=== PATIENT | female | born 1950 | race Caucasian/White ===

== ENCOUNTER → 2017-05-20 | Outpatient (CLI) | payer MEDICARE, OTHER ==
[~2017-05-20] MED LIST: CLOP75TA PO; DILA2TAB4 PO; DOCU1CAP39 PO; DULA0.5I SQ; GLIP10TA6 PO; HYDR-3583 PO; IRBE150T15 PO; LEXA20TA PO; LYRI75CA PO; MOBI15TA PO; MORP1TAB25 PO; NOVORP2 SQ; PANT40TA3 PO; PENT400T PO; ZOCO40TA PO; ZOLP10TA3 PO
[2017-05-20 10:39] LABS: HEMATOCRIT 33.7 % (35.0-46.0); MEAN CELL VOLUME 87.9 FL (80.0-100.0); MEAN CORPUSCULAR HEMOGLOBIN 29.3 PG (27.0-34.0); MEAN CORPUSCULAR HGB CONC 33.3 % (32.0-36.0); PLATELET COUNT 295 TH/MM3 (150-450); RED BLOOD COUNT 3.83 MIL/MM3 (4.00-5.30); RED CELL DISTRIBUTION WIDTH 14.4 % (11.6-17.2); REVIEW FLAG FINAL; WHITE BLOOD COUNT 8.8 TH/MM3 (4.0-11.0)
[2017-05-20 10:44] LABS: APTT (PATIENT) 22.9 SEC (24.3-30.1); INTERNATIONAL NORMALIZED RATIO 0.9 RATIO; PROTHROMBIN TIME - PATIENT 9.9 SEC (9.8-11.6)
[2017-05-20 11:00] LABS: BICARBONATE 25.1 MEQ/L (21.0-32.0); POTASSIUM 4.1 MEQ/L (3.5-5.1)
--- NOTE | 2017-05-20 11:08 | RADRPT ---
EXAM DATE/TIME: 05/20/2017 10:45 [facility] COMPARISON: No previous studies available for comparison. INDICATIONS : Evaluate for penumonia, penumothorax or communicable disease. Lumbar spine surgery. MEDICAL HISTORY : Hypertension. Osteoarthritis. Diabetic. Peripheral neuropathy. CAD. Peripheral vascular disease. SURGICAL HISTORY : Cholecystectomy. Cardiac cath w/ stent. ENCOUNTER: Initial ACUITY: 1 day PAIN SCORE: 0/10 LOCATION: chest FINDINGS: PA and lateral views of the chest demonstrate the lungs to be symmetrically aerated without evidence of mass, infiltrate or effusion. The cardiomediastinal contours are unremarkable. Osseous structure s are intact. CONCLUSION: No acute disease. Dave Jalloh Jr., MD on May 20, 2017 at 11:04 Board Certified Radiologist. This report was verified electronically.
--- NOTE | 2017-05-22 08:43 | EKG ---
Date Performed: 05/20/2017 Time Performed: 10:05:58 PTAGE: 66 years EKG: Sinus rhythm WITH OCCASIONAL SUPRAVENTRICULAR PREMATURE COMPLEXES LOW QRS VOLTAGE IN PRECORDIAL LEADS BORDERLINE ECG NO PREVIOUS TRACING DOCTOR: Ramón Burks Interpretating Date/Time 05/22/2017 08:42:59
== END ==
LOC: CPRE 09:13
PROVIDERS: ATTEND Neurological Surgery
DX: Z01.810 Encounter for preprocedural cardiovascular examination (principal); Z01.811 Encounter for preprocedural respiratory examination; Z01.812 Encounter for preprocedural laboratory examination; M48.062 Spinal stenosis, lumbar region with neurogenic claudication; M54.16 Radiculopathy, lumbar region; M43.16 Spondylolisthesis, lumbar region; R94.31 Abnormal electrocardiogram [ECG] [EKG]
CPT/HCPCS: 36415; 71020; 80048; 85027; 85610; 85730; 93005

== ENCOUNTER 2017-05-25 05:49 | Inpatient (IN) | payer MEDICARE, OTHER ==
[~2017-05-25] VITALS: Ht 172.7 cm; Wt 100.0 kg
[~2017-05-25 05:49] MED LIST changes: -DILA2TAB4 PO; -DOCU1CAP39 PO; -NOVORP2 SQ; -PANT40TA3 PO
[2017-05-25] MEDS ORDERED: LACTATED RINGER'S 1000 ML IV PRN (06:45)
[2017-05-25] MEDS ORDERED: SODIUM CHLORID 0.9% 500 ML IV PRN (06:45)
[2017-05-25] MEDS ORDERED: POVIDONE IODINE 5% (ANTISEPSIS KIT) 4 APPLICATIONS EACH NARE PRN (06:45)
[2017-05-25] MEDS ORDERED: METOPROLOL TARTRATE 25 MG TAB PO PRN (06:45)
[2017-05-25] MEDS ORDERED: INSULIN HUMAN REGULAR 1,000 UNITS/10 ML VIAL SQ PRN (06:45)
[2017-05-25] MEDS ORDERED: CHLORHEXIDINE GLUCONATE 2 % 1 PACK (2 CLOTHS) TOPICAL PRN (06:45)
[2017-05-25] MEDS ORDERED: LACTATED RINGER'S 1000 ML INJ 1,000 ML IV SCH (06:45)
[2017-05-25] MEDS ORDERED: ACETAMINOPHEN 1000 MG/100 ML 100 ML IV ONE (07:00)
[2017-05-25] MEDS ORDERED: ARTIFICIAL TEARS OPTH OINT 3.5 APPLIC/3.5 GM TUBO ONE (07:00)
[2017-05-25] MEDS ORDERED: THROMBIN (TOPICAL) 5,000 UNIT VIAL ONE ×2 (08:11→11:43)
[2017-05-25] MEDS ORDERED: GELFOAM SIZE 100 ONE (08:12)
[2017-05-25] MEDS ORDERED: GENTAMICIN SULFATE 80 MG/2 ML VIAL ONE (08:12)
[2017-05-25] MEDS ORDERED: LIDOCAINE 1%/EPINEPHrine 1:100,000 SOLN 50 ML VIAL ONE (08:12)
[2017-05-25] MEDS ORDERED: PROPOFOL 500 MG/50 ML INJ 50 ML ONE (09:21)
[2017-05-25] MEDS ORDERED: ceFAZolin INJ 1,000 MG VIAL IV ONE (09:38)
[2017-05-25] MEDS: ceFAZolin 1,000 MG/NS 100 ML IV SCH ×4 (09:38→13:30)
[2017-05-25] MEDS ORDERED: HYDROmorphone HCL PF 2 MG/ML VIAL ONE (10:19)
[2017-05-25] MEDS ORDERED: KETAMINE HCL 500 MG/10 ML VIAL ONE (10:19)
[2017-05-25] MEDS ORDERED: BUPIVACAINE LIPOSOME PF 1.3% 20 ML VIAL ONE (10:20)
[2017-05-25] MEDS ORDERED: PROPOFOL 500 MG/50 ML INJ 100 ML ONE (10:39)
[2017-05-25] MEDS ORDERED: PROPOFOL 200 MG/20 ML AMP ONE (12:36)
[2017-05-25 12:44] LABS: BLOOD GAS BASE EXCESS -6.5 mmol/L (-2-2); BLOOD GAS CARBOXYHEMOGLOBIN 0.9 % (0-4); BLOOD GAS HCO3 18 mmol/L (22-26); BLOOD GAS METHEMOGLOBIN 1.3 % (0-2); BLOOD GAS O2 HGB SATURATION 97 % (90-100); BLOOD GAS OXYGEN CONTENT 19.6 Vol % (12.0-20.0); BLOOD GAS PCO2 33 mmHg (38-42); BLOOD GAS PO2 284 mmHg (61-120); BLOOD GAS TOTAL HGB 13.9 G/DL (12.0-16.0); CRITICAL VALUE NO; TEMP CORR TO 98.6
[2017-05-25 12:45] LABS: FIO2 50 %; OXYGEN DEVICE OR; STAT YES
[2017-05-25] MEDS ORDERED: BUPIVACAINE LIPOSOME PF 1.3% 20 ML VIAL INFIL ONE (13:38)
[2017-05-25] MEDS ORDERED: BUPIVACAINE HCL PF 0.25% 30 ML VIAL ONE (14:12)
[2017-05-25] MEDS ORDERED: MORPHINE SULFATE 4 MG/ML INJ IV PUSH PRN (15:30)
[2017-05-25] MEDS ORDERED: ONDANSETRON HCL 4 MG/2 ML VIAL IV PUSH PRN (15:30)
[2017-05-25] MEDS ORDERED: SODIUM CHLORIDE 0.9% FLUSH 5 ML FLUSH IVF PRN (15:30)
[2017-05-25] MEDS ORDERED: GLUCAGON 1 MG/ML VIAL OTHER PRN (15:30)
[2017-05-25] MEDS ORDERED: DEXTROSE 50% IN WATER 50 ML VIAL(D50) IV PUSH PRN (15:30)
[2017-05-25] MEDS ORDERED: HYDROmorphone HCL 2 MG TAB PO PRN (15:30)
[2017-05-25] MEDS ORDERED: NALOXONE HCL 0.4 MG/ML AMP IV PUSH PRN (15:30)
[2017-05-25] MEDS ORDERED: HYDROmorphone HCL PF 1 MG/ML VIAL IV PUSH PRN (15:30)
[2017-05-25] MEDS ORDERED: ZOLPIDEM TARTRATE 10 MG TAB PO PRN (15:45)
[2017-05-25] MEDS ORDERED: NON-FORMULARY DRUG (Dulaglutide Inj (Trulicity Inj) 1.5 MG) SQ SCH (15:45)
--- NOTE | 2017-05-25 15:48 | PD.OP ---
Operative Report Date of Surgery: May 25, 2017 Preoperative Diagnosis: (1) Lumbar radiculopathy (2) Lumbar canal stenosis (3) Spondylolisthesis of lumbar region Grade I L4-5- spondylolisthesis Lumbar stenosis Left L5 radiculopathy Postoperative Diagnosis: (1) Lumbar radiculopathy (2) Lumbar canal stenosis (3) Spondylolisthesis of lumbar region Grade I L4-5- spondylolisthesis Lumbar stenosis Left L5 radiculopathy Procedure: 1. Bilateral L4-5 decompressive hemilaminectomy 2. Left L4 5 facetectomy foraminotomy, decompression left L4 and L5 nerve roots 3. L4 5 discectomy, interbody fusion, PEEK cage, local autograft bone, allograft bone 4. Bilateral L4-5 posterior instrumentation with pedicle screw fixation Anesthesia: Gen. Surgeon: Eliot Marquez [employer] Director(s): Goran Becerril Operation and Findings: Procedure in detail The patient was brought to the operating room and general endotracheal anesthesia induced without difficulty Lines were established per Anesthesia Sequential compression devices were in place The patient was positioned prone on the concentric Emerson table with the side bolsters and all extremities appropriately padded Leads for intraoperative neuro monitoring were placed prior to positioning and a baseline study obtained Appropriate timeout procedure was performed with all personnel present and in agreement The lumbar region was shaved with clippers and sterilely prepped and draped 1% Xylocaine with epinephrine was used for local infiltration over the incision site which was made approximately 5.5 cm lateral to the midline at the bilateral L4-5 level and carried sharply down to the fascia. The fascia was sharply incised and finger dissection was used to separate the normal intermuscular plane at the L4-5 level, allowing direct palpation of the junction of the and pedicle and transverse process on each side. The entry point for the pedicle screws were determined by anatomic and radiographic landmarks. Using AP and lateral C-arm imaging, the Jamshidi needle was guided through the bilateral L4 and L5 pedicle. The intraoperative C-arm imaging was used to verify appropriate Jamshidi needle placement. The wires were then placed through the Jamshidi needle cannulas, and the cannula was withdrawn. The wires were temporarily clipped away from the operative field. On the left side Stoll elevator was used for subperiosteal elevation of paraspinous musculature and fascia away from the lamina and spinous processes The deep self-retaining retractor was placed The appropriate levels were verified with intraoperative C-arm The microscope was moved into place and used for the remainder of the procedure including the closure The TPS drill with a 5 mm bone bur followed by the Kerrison rongeur was used to remove the inferior two thirds of the lamina at the cephalad level of the decompression and the superior third of the lamina at the caudal level of the decompression. This was performed starting on the left side, and then working across midline towards the right. On the left side the majority of the medial facet was removed to allow sufficient room for placement of the cage without significant retraction of the thecal sac and exiting nerve root. Additional bone from the superior aspect of the superior left L5 facet was removed with Kerrison rongeur to complete the foraminotomy and wide decompression of the exiting left L4 nerve root. The left L4 5 facet surfaces were significantly at the time of initial exposure. Hypertrophied ligamentum flavum was elevated away from the thecal sac and exiting nerve roots with the thin ligament dissector and resected with a 15 blade knife and Kerrison rongeur. The thecal sac and exiting left L5 nerve root were freed up from surrounding adhesions with the microdissectors and gently retracted medially revealing the underlying disc and annulus. There was moderate subannular disc herniation. The annulus was incised with the 11 blade knife and discectomy performed with pituitary biopsy forceps and straight and angled curettes The endplate scrapers were used to decorticate the endplates and any remaining debris was removed with the antibiotic irrigation and suction and pituitary biopsy forceps The appropriate size PEEK cage was packed with retained lamina cancellus autograft and a small amount of demineralized bone matrix The 8 mm Lordotic cage was used. The cage was placed at the L4 5 level with a good fit of the cage. The cage was positioned more towards the right side in order to reduce the convex left L4 5 coronal curvature The placement was checked under the microscope and with intraoperative C-arm and felt to be satisfactory. The thecal sac and nerve roots were probed with the long blunt nerve hook and felt to be well decompressed The cannulated 5.5 mm tap was then used to prepare the pedicle screw sites on each side, with the dilators used to protect the surrounding tissue. The appropriate length Spine Wave Sniper percutaneous cannulated pedicle screw attached to the MIS extenders were placed into the bilateral L4 and L5 pedicle using the existing guidewires which were then removed. Pedicle screw placement was checked with intraoperative C-arm imaging and felt to be satisfactory. The percutaneous rods were placed across the pedicle screws on each side. The locking caps were secured with the torque wrench and anti-torque device Compression and alignment were achieved as necessary with the rods and reducers. The entire construct was checked with intraoperative C-arm and felt to be satisfactory The region was well irrigated with antibiotic irrigation The posterior lateral structures at the bilateral L4 5 levels were decorticated with the TPS drill The shavings were left in place, to which was added the remaining autograft and allograft bone which was firmly packed in place for the posterior lateral fusion. The 10 [place] fluted drain was left in place at the operative side and brought out through a incision at the upper lumbar region and secured to the skin with nylon suture and attached to sterile suction bleeding was carefully controlled with the bipolar forceps The closure was performed with 0 Vicryl interrupted for the deep and superficial fascia, with 3-0 Vicryl for the subcutaneous closure and 4-0 Vicryl running subcuticular closure. Dressings sterile Mastisol, Steri-Strips and Primapore was placed The patient was turned into supine position and taken to recovery room in stable condition All counts were correct at the end of the case Estimated blood loss was 450 cc No specimen was sent to pathology Neuro monitoring was stable during the procedure Eliot Marquez MD May 25, 2017 15:48
[2017-05-25] MEDS ORDERED: *MEPERIDINE 25 MG INJ VIAL PERIprocedural Use ONLY ONE (15:57)
[2017-05-25] MEDS ORDERED: DO NOT ADM ANY ANTICOAGULANT DRUGS PRN (16:00)
[2017-05-25] MEDS: glipiZIDE 10 MG TAB PO SCH (16:00)
[2017-05-25 16:14] LABS: AUTOMATED NEUTROPHIL # 7.3 TH/MM3 (1.8-7.7); BASOPHIL % 0.3 % (0.0-2.0); EOSINOPHIL % 0.3 % (0.0-4.0); HEMATOCRIT 27.5 % (35.0-46.0); HEMO FLAGS DIFF FINAL; LYMPH % 19.8 % (9.0-44.0); MEAN CELL VOLUME 88.2 FL (80.0-100.0); MEAN CORPUSCULAR HEMOGLOBIN 29.2 PG (27.0-34.0); MEAN CORPUSCULAR HGB CONC 33.1 % (32.0-36.0); MONO % 7.3 % (0.0-8.0); NEUT % 72.3 % (16.0-70.0); PLATELET COUNT 252 TH/MM3 (150-450); RED BLOOD COUNT 3.11 MIL/MM3 (4.00-5.30); RED CELL DISTRIBUTION WIDTH 14.2 % (11.6-17.2); WHITE BLOOD COUNT 10.1 TH/MM3 (4.0-11.0)
[2017-05-25] MEDS ORDERED: *morphine SULFATE 8 MG/ML PERIprocedure ONLY ONE (16:19)
--- NOTE | 2017-05-25 16:19 | RADRPT ---
EXAM DATE/TIME: 05/25/2017 10:03 [facility] COMPARISON: No previous studies available for comparison. INDICATIONS : Lower back pain. L4-L5 Fusion. MEDICAL HISTORY : Hypertension. Osteoarthritis. Diabetic. Peripheral neuropathy. CAD. Peripheral vascular disease. SURGICAL HISTORY : Cholecystectomy. Cardiac cath w/ stent. ENCOUNTER: Initial ACUITY: 1 day PAIN SCORE: Non-responsive. LOCATION: Bilateral lower back. FINDINGS: 2 magnified C-arm spot views are centered over the lower lumbar spine. They show bilateral transpedic ular posterior fixation with intervening bone graft device at L4-L5. Alignment seen. CONCLUSION: Limited images as detailed above. Dave Jalloh Jr., MD on May 25, 2017 at 16:15 Board Certified Radiologist. This report was verified electronically.
[2017-05-25 16:30] LABS: BICARBONATE 22.4 MEQ/L (21.0-32.0); POTASSIUM 4.2 MEQ/L (3.5-5.1)
[2017-05-25] MEDS: 1/2 NS + KCL 20 MEQ INJ 1,000 ML IV SCH (16:40)
[2017-05-25] MEDS: INSULIN NovoLIN REGULAR SUPPLEMENTAL SCALE SQ SCH ×2 (17:00→21:07)
[2017-05-25] MEDS ORDERED: PT TRULICITY SQ SCH (17:00)
--- NOTE | 2017-05-25 17:06 | RADRPT ---
EXAM DATE/TIME: 05/25/2017 13:38 [facility] COMPARISON: No previous studies available for comparison. INDICATIONS : Central line placement. MEDICAL HISTORY : Hypertension. Osteoarthritis. Diabetic. Peripheral neuropathy. CAD. Peripheral vascular disease. SURGICAL HISTORY : Cholecystectomy. Cardiac cath w/ stent. ENCOUNTER: Subsequent ACUITY: 4 - 6 days PAIN SCORE: Non-responsive. LOCATION: Bilateral chest FINDINGS: Right IJ line in good position. Cardiomegaly with mild interstitial edema. Negative for pneumothora x. CONCLUSION: Cardiomegaly with mild interstitial edema Line in good position. Riki Marr MD FACR on May 25, 2017 at 17:04 Board Certified Radiologist. This report was verified electronically.
[2017-05-25 17:40] VITALS: BP 128/67; PULSE 92; RESP 18; TEMP 96.3; O2SAT 100
[2017-05-25 19:00] VITALS: BP 139/69; PULSE 93; RESP 16; TEMP 97.7; O2SAT 96
[2017-05-25] MEDS: SODIUM CHLORIDE 0.9% FLUSH 5 ML FLUSH IVF SCH (20:58)
[2017-05-25] MEDS: MORPHINE SULFATE 30 MG CONTROLLED RELEASE TAB PO SCH (20:58)
[2017-05-25] MEDS: DOCUSATE SODIUM 100 MG CAP PO SCH (20:58)
[2017-05-25] MEDS: PREGABALIN 75 MG CAP PO SCH (20:58)
[2017-05-25 21:09] VITALS: O2SAT 99
[2017-05-25] MEDS: PENTOXIFYLLINE 400 MG CONTROLLED RELEASE TAB PO SCH (21:41)
[2017-05-26] MEDS: 1/2 NS + KCL 20 MEQ INJ 1,000 ML IV SCH ×2 (02:08→12:00)
[2017-05-26 04:00] VITALS: BP 99/48; PULSE 86; RESP 17; TEMP 96.8; O2SAT 100
[2017-05-26] MEDS: ACETAMINOPHEN/HYDROcodone 325 MG/10 MG TAB PO PRN ×4 (06:28→21:12)
[2017-05-26] MEDS: glipiZIDE 10 MG TAB PO SCH ×2 (06:28→15:17)
[2017-05-26 07:38] LABS: AUTOMATED NEUTROPHIL # 6.7 TH/MM3 (1.8-7.7); BASOPHIL % 0.5 % (0.0-2.0); EOSINOPHIL % 0.1 % (0.0-4.0); HEMO FLAGS DIFF FINAL; LYMPH % 13.6 % (9.0-44.0); LYMPHOCYTE # 1.2 TH/MM3 (1.0-4.8); MEAN CELL VOLUME 88.1 FL (80.0-100.0); MEAN CORPUSCULAR HEMOGLOBIN 29.2 PG (27.0-34.0); MEAN CORPUSCULAR HGB CONC 33.2 % (32.0-36.0); MONO % 9.9 % (0.0-8.0); NEUT % 75.9 % (16.0-70.0); PLATELET COUNT 205 TH/MM3 (150-450); RED BLOOD COUNT 2.95 MIL/MM3 (4.00-5.30); RED CELL DISTRIBUTION WIDTH 14.2 % (11.6-17.2); WHITE BLOOD COUNT 8.8 TH/MM3 (4.0-11.0)
[2017-05-26 07:59] LABS: BICARBONATE 21.7 MEQ/L (21.0-32.0); POTASSIUM 4.5 MEQ/L (3.5-5.1)
[2017-05-26 08:00] VITALS: BP 111/69; PULSE 86; RESP 18; TEMP 97.4; O2SAT 99
[2017-05-26] MEDS: MORPHINE SULFATE 30 MG CONTROLLED RELEASE TAB PO SCH ×2 (08:57→21:13)
[2017-05-26] MEDS: DOCUSATE SODIUM 100 MG CAP PO SCH ×2 (08:57→21:13)
[2017-05-26] MEDS: ESCITALOPRAM OXALATE 20 MG TAB PO SCH (08:57)
[2017-05-26] MEDS: PANTOPRAZOLE SOD 40 MG DELAYED RELEASE TAB PO SCH (08:57)
[2017-05-26] MEDS: INSULIN NovoLIN REGULAR SUPPLEMENTAL SCALE SQ SCH ×4 (08:57→21:12)
[2017-05-26] MEDS: PENTOXIFYLLINE 400 MG CONTROLLED RELEASE TAB PO SCH ×2 (08:59→21:13)
[2017-05-26] MEDS: PREGABALIN 75 MG CAP PO SCH ×2 (08:59→21:12)
[2017-05-26] MEDS: SODIUM CHLORIDE 0.9% FLUSH 5 ML FLUSH IVF SCH ×2 (09:00→21:15)
[2017-05-26] MEDS ORDERED: IRBESARTAN 150 MG PO SCH (09:00)
[2017-05-26] MEDS: LOSARTAN 50 MG TAB PO SCH (09:00)
[2017-05-26 09:18] LABS: INTERNATIONAL NORMALIZED RATIO 0.9 RATIO
[2017-05-26 09:21] LABS: APTT (PATIENT) 20.8 SEC (24.3-30.1)
[2017-05-26 10:22] VITALS: O2SAT 98
[2017-05-26 12:00] VITALS: BP 112/57; PULSE 82; RESP 18; TEMP 97.7; O2SAT 99
--- NOTE | 2017-05-26 18:22 | HHI.NSPN ---
(Peter Benito) History Chief Complaint: Back and leg pain (Peter Benito) Interval History 05/25: The patient presented to [facility] to undergo a bilateral L4-5 laminectomy, interbody fusion, PEEK cage and posterior instrumentation. Post- operatively she was admitted to a regular med/surg floor. 05/26: When seen this afternoon the patient complains that she is in severe pain and that the hydrocodone and morphine are not helping with her pain at all. She has pain to the lower back going down both legs. She does state she has her neuropathy and is having restless legs. She states her pain is worse than before surgery because she has been cut on. The only thing that helps is hydromorphone, especially intravenous. She does state she pulled out her central venous catheter and the ERIN drain while moving around in bed. She does say that the pills were not controlling her pain before surgery either. (Peter Benito) System Review Comments MUSCULOSKELETAL: Back and leg pain. Restless legs. NEUROLOGICAL: Neuropathy to legs. Restless legs. (Peter Benito) Exam Results 05/25/17 05/25/17 05/26/17 05/26/17 05/27/17 05/27/17 06:00 18:00 06:00 18:00 06:00 18:00 Intake Total 2690 ml 1440 ml 800 ml Output Total 1160 ml 550 ml 710 ml Balance 1530 ml 890 ml 90 ml Intake Oral 480 ml 800 ml IV Total 40 ml 960 ml Other 2650 ml Output Urine Total 700 ml 550 ml 700 ml Drainage Total 10 ml 0 ml 10 ml Estimated Blood Loss 450 ml # Bowel Movements 0 0 Vital Signs Date Time Temp Pulse Resp B/P (MAP) Pulse Ox O2 Delivery O2 Flow Rate FiO2 05/26/17 16:18 18 05/26/17 12:00 97.7 82 18 112/57 (75) 99 05/26/17 10:22 98 Nasal Cannula 3.00 05/26/17 09:57 16 05/26/17 09:57 16 05/26/17 08:00 97.4 86 18 111/69 (83) 99 05/26/17 04:00 96.8 86 17 99/48 (65) 100 05/26/17 00:13 18 05/26/17 00:05 Nasal Cannula 3.00 05/25/17 21:09 99 Nasal Cannula 3.00 05/25/17 19:00 97.7 93 16 139/69 (92) 96 05/25/17 17:40 96.3 92 18 128/67 (87) 100 05/25/17 17:00 97.6 87 14 111/50 (70) 98 Nasal Cannula 3 05/25/17 16:45 86 16 103/53 (70) 99 Nasal Cannula 3 05/25/17 16:30 89 14 108/54 (72) 96 Nasal Cannula 3 05/25/17 16:15 87 16 147/95 (112) 100 Nasal Cannula 3 05/25/17 16:00 88 15 137/74 (95) 98 Nasal Cannula 3 05/25/17 15:45 91 16 148/67 (94) 98 Nasal Cannula 3 05/25/17 15:30 87 14 130/63 (85) 100 Nasal Cannula 3 05/25/17 15:24 97.3 87 15 121/64 (83) 98 Nasal Cannula 5 05/25/17 07:19 98.0 101 20 160/89 (112) 98 (Peter Benito) Physical Examination GENERAL: Awake & alert, appears uncomfortable, continually shifting legs. Affect essentially normal. No apparent distress. SKIN: Warm & dry. Right anterolateral neck CVC insertion site w/dressing essentially off, no drainage from site. Essentially intact dressing to lumbar surgical incision w/o any shadowing. Right lateral ERIN insertion site w/intact dressing, no evident drainage. GENITOURINARY: Acuña catheter to BSD w/clear yellow urine. MUSCULOSKELETAL: Midline thoracolumbar spine NTTP. Lumbar surgical incision NTTP. TTP to bilateral buttocks and lateral hips/thighs. NAVARRO w/o difficulty. Continually shifting lower extremities. NEUROLOGICAL: AAOx3. Speech clear & appropriate. Follows simple commands w/o difficulty. Appears sensation to lower extremities to light touch is normal for patient. She answers that she has neuropathy to the lower extremities but she never endorses that they are numb when asked. Motor strength is 4+ to 5/5 to all major flexion & extension muscle groups to the lower extremities, mild weakness appears to be related to pain in the lateral thigh upon testing. (Peter Benito) Lab, Micro, Other Results Recent Impressions Lumbar Spine X-Ray 05/25/17 0000 Signed Impressions: Service Date/Time: Thursday, May 25, 2017 10:03 - CONCLUSION: Limited images as detailed above. Dave Jalloh Jr., MD Chest X-Ray 05/25/17 0000 Signed Impressions: Service Date/Time: Thursday, May 25, 2017 13:38 - CONCLUSION: Cardiomegaly with mild interstitial edema Line in good position. Riki Marr MD FACR Laboratory Tests Test 05/25/17 12:20 05/25/17 15:28 05/25/17 15:48 05/26/17 07:20 Blood Gas Puncture Site DRAWN IN OR Blood Gas Patient Temperature 98.6 Blood Gas HCO3 18 mmol/L Blood Gas Base Excess -6.5 mmol/L Blood Gas Oxygen Saturation 97 % Arterial Blood pH 7.35 Arterial Blood Partial Pressure CO2 33 mmHg Arterial Blood Partial Pressure O2 284 mmHg Arterial Blood Oxygen Content 19.6 Vol % Arterial Blood Carboxyhemoglobin 0.9 % Arterial Blood Methemoglobin 1.3 % Blood Gas Hemoglobin 13.9 G/DL Oxygen Delivery Device OR Blood Gas Inspired Oxygen 50 % White Blood Count 10.1 TH/MM3 8.8 TH/MM3 Red Blood Count 3.11 MIL/MM3 2.95 MIL/MM3 Hemoglobin 9.1 GM/DL 8.6 GM/DL Hematocrit 27.5 % 26.0 % Mean Corpuscular Volume 88.2 FL 88.1 FL Mean Corpuscular Hemoglobin 29.2 PG 29.2 PG Mean Corpuscular Hemoglobin Concent 33.1 % 33.2 % Red Cell Distribution Width 14.2 % 14.2 % Platelet Count 252 TH/MM3 205 TH/MM3 Mean Platelet Volume 8.2 FL 8.5 FL Neutrophils (%) (Auto) 72.3 % 75.9 % Lymphocytes (%) (Auto) 19.8 % 13.6 % Monocytes (%) (Auto) 7.3 % 9.9 % Eosinophils (%) (Auto) 0.3 % 0.1 % Basophils (%) (Auto) 0.3 % 0.5 % Neutrophils # (Auto) 7.3 TH/MM3 6.7 TH/MM3 Lymphocytes # (Auto) 2.0 TH/MM3 1.2 TH/MM3 Monocytes # (Auto) 0.7 TH/MM3 0.9 TH/MM3 Eosinophils # (Auto) 0.0 TH/MM3 0.0 TH/MM3 Basophils # (Auto) 0.0 TH/MM3 0.0 TH/MM3 CBC Comment DIFF FINAL DIFF FINAL Differential Comment Blood Urea Nitrogen 20 MG/DL 18 MG/DL Creatinine 1.15 MG/DL 1.08 MG/DL Random Glucose 183 MG/DL 219 MG/DL Calcium Level 7.8 MG/DL 8.0 MG/DL Sodium Level 134 MEQ/L 132 MEQ/L Potassium Level 4.2 MEQ/L 4.5 MEQ/L Chloride Level 103 MEQ/L 102 MEQ/L Carbon Dioxide Level 22.4 MEQ/L 21.7 MEQ/L Anion Gap 9 MEQ/L 8 MEQ/L Estimat Glomerular Filtration Rate 48 ML/MIN 51 ML/MIN Test 05/26/17 08:45 Prothrombin Time 10.0 SEC Prothromb Time International Ratio 0.9 RATIO Activated Partial Thromboplast Time 20.8 SEC (Peter Benito) Medical Decision Making Impression and Plan Impression: Postoperative Diagnosis: (1) Lumbar radiculopathy (2) Lumbar canal stenosis (3) Spondylolisthesis of lumbar region Grade I L4-5- spondylolisthesis Lumbar stenosis Left L5 radiculopathy The patient continues to have pain to the buttocks, hips and down the legs that is not controlled with her current medication regimen. Motor strength is good. Sensation appears to be intact for patient. POD #1 () s/p: 1. Bilateral L4-5 decompressive hemilaminectomy 2. Left L4 5 facetectomy foraminotomy, decompression left L4 and L5 nerve roots 3. L4 5 discectomy, interbody fusion, PEEK cage, local autograft bone, allograft bone 4. Bilateral L4-5 posterior instrumentation with pedicle screw fixation Plan: Mobilise patient w/assistance. LSO brace when OOB. PT eval & tx. (Peter Benito) Attending Statement patient seen by CHANDANA post op today . Discussed with RN this evening. Patient is comfortable OOB in chair.. Doesnt seem painful until RN enters the room, when Ms. Dyer exhibits concern over care and companionship at home. Will add Toradol, continue other pain meds. Anticipate she will need rehab or SNF initially post op. (Eliot Marquez MD) Peter Benito May 26, 2017 18:21 Eliot Marquez MD May 26, 2017 21:54
[2017-05-26 20:55] VITALS: BP 137/65; PULSE 88; RESP 18; TEMP 97; O2SAT 95
[2017-05-26 23:55] VITALS: BP 93/44; PULSE 92; RESP 18; TEMP 98.7; O2SAT 100
[2017-05-26] MEDS: KETOROLAC TROMETHAMINE 30 MG/ML (IVP) VIAL IV PUSH SCH (23:59)
[2017-05-27] MEDS: glipiZIDE 10 MG TAB PO SCH (06:04)
[2017-05-27] MEDS: KETOROLAC TROMETHAMINE 30 MG/ML (IVP) VIAL IV PUSH SCH ×2 (06:05→13:18)
[2017-05-27 08:00] VITALS: BP 134/60; PULSE 89; RESP 18; TEMP 96.9; O2SAT 99
[2017-05-27 08:12] LABS: BICARBONATE 23.9 MEQ/L (21.0-32.0)
[2017-05-27 08:13] LABS: POTASSIUM 3.9 MEQ/L (3.5-5.1)
[2017-05-27] MEDS: DOCUSATE SODIUM 100 MG CAP PO SCH (09:03)
[2017-05-27] MEDS: ESCITALOPRAM OXALATE 20 MG TAB PO SCH (09:03)
[2017-05-27] MEDS: PENTOXIFYLLINE 400 MG CONTROLLED RELEASE TAB PO SCH (09:03)
[2017-05-27] MEDS: INSULIN NovoLIN REGULAR SUPPLEMENTAL SCALE SQ SCH ×2 (09:03→13:18)
[2017-05-27] MEDS: PANTOPRAZOLE SOD 40 MG DELAYED RELEASE TAB PO SCH (09:04)
[2017-05-27] MEDS: LOSARTAN 50 MG TAB PO SCH (09:04)
[2017-05-27] MEDS: PREGABALIN 75 MG CAP PO SCH (09:04)
[2017-05-27] MEDS: MORPHINE SULFATE 30 MG CONTROLLED RELEASE TAB PO SCH (09:04)
[2017-05-27] MEDS: SODIUM CHLORIDE 0.9% FLUSH 5 ML FLUSH IVF SCH (09:05)
[2017-05-27] MEDS: ACETAMINOPHEN/HYDROcodone 325 MG/10 MG TAB PO PRN (10:37)
[2017-05-27] MEDS ORDERED: GADODIAMIDE PF 287 MG/ML 20 ML VIAL (for RAD MRI) IV PUSH ONE (13:10)
--- NOTE | 2017-05-27 13:22 | RADRPT ---
EXAM DATE/TIME: 05/27/2017 12:17 [facility] COMPARISON: No previous studies available for comparison. INDICATIONS : Lower back pain radiating down both legs post lumbar fusion. CONTRAST: 20 cc Omniscan (gadodiamide) IV MEDICAL HISTORY : Hypertension. Diabetes mellitus type 2. Osteoarthritis. Peripheral neuropathy. CAD. SURGICAL HISTORY : Fusion, lumbar. Appendectomy. Cholecystectomy. ENCOUNTER: Subsequent ACUITY: 2 day PAIN SCORE: 3/10 LOCATION: lower back TECHNIQUE: Multiplanar multisequence MRI of the lumbar spine was performed with and without contrast. FINDINGS: The most caudal appearing lumbar vertebra is numbered as L5. VERTEBRAE: Bilateral posterior fixation at L4-L5. The orthopedic hardware generates some artifact. Schmorl's nod es are seen involving both endplates at L2 and L3. Marrow signal is normal. Vertebral body heights ar e maintained. CONUS: Normal level and configuration. POST CONTRAST: No abnormal areas of contrast enhancement are seen. Small cortical renal cysts bilaterally. T12-L1: There is disc space narrowing with mild broad-based disc bulge. Lateral recesses and central canal ar e patent. Neural foramina are patent. L1-L2: There is disc space narrowing with mild broad-based disc bulge. Lateral recesses and central canal ar e patent. Neural foramina are patent. L2-L3: There is disc desiccation and disc space narrowing with a mild broad-based disc osteophyte complex mi ld bony hypertrophy and ligamentum flavum hypertrophy of the facets. Mild narrowing of the left later al recess impingement. The right lateral recess is patent. Mild narrowing of the central canal with t he intrathecal space measuring 8 mm in anterior posterior dimension. Neural foramina are patent bilat erally. L3-L4: Part of this level is obscured by artifact from the adjacent hardware. There is disc desiccation and disc space narrowing with a moderate broad-based bulge. Moderate ligamentum flavum hypertrophy and benedict ny hypertrophy of the facets. There is narrowing of the central canal with the intrathecal space linda uring 6 mm in anterior to posterior dimension. Narrowing of the lateral recesses bilaterally but more pronounced on the right. There is narrowing of the left neural foramen with possible impingement of the L3 nerve root. Right neural foramen is patent. L4-L5: Bilateral posterior fixation with left hemilaminectomy changes. Postsurgical changes are seen involvi ng the dorsal soft tissues particular involving the left hemilaminectomy surgical site. No hematoma o r abscess observed. The tissue within the left hemilaminectomy site causes some impression upon the l eft posterior lateral portion of the thecal sac. This causes narrowing of the central canal somewhat. The intrathecal space measures 8 mm in the midline. Neural foramina are obscured. L5-S1: There is disc desiccation and disc space narrowing with a minimal broad-based bulge. Lateral recesses , central canal, and visualized portions of the neural foramina are patent. There is mild artifact fr om the adjacent hardware. Facet joints are unremarkable. CONCLUSION: 1. Posterior fixation at L4-L5 with postsurgical changes seen involving the surgical site including l eft hemilaminectomy changes. There is edema involving the soft tissues which causes some impression u alaina the thecal sac. No hematoma or abscess is seen. 2. Multilevel degenerative changes as detailed at each level in the above discussion. Dave Jalloh Jr., MD on May 27, 2017 at 13:05 Board Certified Radiologist. This report was verified electronically.
[2017-05-27] MEDS ORDERED: MORP1TAB25 PO (14:31)
[2017-05-27] MEDS ORDERED: DILA2TAB4 PO (14:31)
[2017-05-27] MEDS ORDERED: DOCU1CAP39 PO (14:31)
[2017-05-27] MEDS ORDERED: HYDR-3583 PO (14:31)
[2017-05-27] MEDS ORDERED: PANT40TA3 PO (14:31)
[2017-05-27] MEDS ORDERED: NOVORP2 SQ (14:35)
--- NOTE | 2017-05-27 14:51 | HHI.DCPOC ---
Discharge Care Plan Diagnosis: (1) Lumbar radiculopathy (2) Lumbar canal stenosis (3) Spondylolisthesis of lumbar region Your Health Problems Are: Incision/Drains Exercise Tolerance Goals to Promote Your Health * To prevent worsening of your condition and complications * To maintain your health at the optimal level Wear the TLSO brace when out of bed. Wear the cervical collar at all times. No lifting, bending, pushing, pulling or other strenuous activity. Leave the dressing on over the surgical incisions for 1 week. After that you may take the outer dressing off but leave the steri-strips on and let them fall off on their own. No showering until the surgical incision is totally healed. Take the pain medication as prescribed. Avoid taking any medication that contains aspirin or NSAIDs (ibuprofen, naproxen , Motrin, Advil, Naprosyn) for at least a month. Follow up in the office in 2 weeks for a wound check. Directions to Meet Your Goals Take your medications as prescribed Follow your dietary instruction Follow activity as directed Wear the TLSO brace when out of bed. Wear the cervical collar at all times. No lifting, bending, pushing, pulling or other strenuous activity. Leave the dressing on over the surgical incisions for 1 week. After that you may take the outer dressing off but leave the steri-strips on and let them fall off on their own. No showering until the surgical incision is totally healed. Take the pain medication as prescribed. Avoid taking any medication that contains aspirin or NSAIDs (ibuprofen, naproxen , Motrin, Advil, Naprosyn) for at least a month. Follow up in the office in 2 weeks for a wound check. Keep your appointments as scheduled Take your immunizations and boosters as scheduled If your symptoms worsen call your PCP, if no PCP go to Urgent Care Center or Emergency Room Smoking is Dangerous to Your Health. Avoid second hand smoke Call the 24-hour hour crisis hotline for domestic abuse at Peter Benito May 27, 2017 14:51
--- NOTE | 2017-05-27 14:53 | HHI.DS ---
Discharge Summary Admission Date May 25, 2017 at 05:49 Discharge Date: May 27, 2017 Admitting Diagnosis (1) Lumbar canal stenosis ICD Code: M48.061 - Spinal stenosis, lumbar region without neurogenic claudication (2) Lumbar radiculopathy Diagnosis: Secondary ICD Code: M54.16 - Radiculopathy, lumbar region (3) Spondylolisthesis of lumbar region Diagnosis: Secondary ICD Code: M43.16 - Spondylolisthesis, lumbar region Procedures : 1. Bilateral L4-5 decompressive hemilaminectomy 2. Left L4 5 facetectomy foraminotomy, decompression left L4 and L5 nerve roots 3. L4 5 discectomy, interbody fusion, PEEK cage, local autograft bone, allograft bone 4. Bilateral L4-5 posterior instrumentation with pedicle screw fixation CBC/BMP: 05/26/17 0720 05/27/17 0716 Significant Findings Laboratory Tests Test 05/25/17 12:20 05/25/17 15:28 05/25/17 15:48 05/26/17 07:20 Blood Gas HCO3 18 mmol/L (22-26) Blood Gas Base Excess -6.5 mmol/L (-2-2) Arterial Blood pH 7.35 (7.380-7.420) Arterial Blood Partial Pressure CO2 33 mmHg (38-42) Arterial Blood Partial Pressure O2 284 mmHg (61-120) Red Blood Count 3.11 MIL/MM3 (4.00-5.30) 2.95 MIL/MM3 (4.00-5.30) Hemoglobin 9.1 GM/DL (11.6-15.3) 8.6 GM/DL (11.6-15.3) Hematocrit 27.5 % (35.0-46.0) 26.0 % (35.0-46.0) Neutrophils (%) (Auto) 72.3 % (16.0-70.0) 75.9 % (16.0-70.0) Blood Urea Nitrogen 20 MG/DL (7-18) Creatinine 1.15 MG/DL (0.50-1.00) 1.08 MG/DL (0.50-1.00) Random Glucose 183 MG/DL (74-106) 219 MG/DL (74-106) Calcium Level 7.8 MG/DL (8.5-10.1) 8.0 MG/DL (8.5-10.1) Sodium Level 134 MEQ/L (136-145) 132 MEQ/L (136-145) Estimat Glomerular Filtration Rate 48 ML/MIN (>89) 51 ML/MIN (>89) Monocytes (%) (Auto) 9.9 % (0.0-8.0) Test 05/26/17 08:45 05/27/17 07:16 Activated Partial Thromboplast Time 20.8 SEC (24.3-30.1) Blood Urea Nitrogen 20 MG/DL (7-18) Creatinine 1.16 MG/DL (0.50-1.00) Random Glucose 240 MG/DL (74-106) Calcium Level 8.0 MG/DL (8.5-10.1) Sodium Level 130 MEQ/L (136-145) Estimat Glomerular Filtration Rate 47 ML/MIN (>89) Hospital Course 05/25: The patient presented to [facility] to undergo a bilateral L4-5 laminectomy, interbody fusion, PEEK cage and posterior instrumentation. Post- operatively she was admitted to a regular med/surg floor. 05/26: When seen this afternoon the patient complains that she is in severe pain and that the hydrocodone and morphine are not helping with her pain at all. She has pain to the lower back going down both legs. She does state she has her neuropathy and is having restless legs. She states her pain is worse than before surgery because she has been cut on. The only thing that helps is hydromorphone, especially intravenous. She does state she pulled out her central venous catheter and the ERIN drain while moving around in bed. She does say that the pills were not controlling her pain before surgery either. 05/27: The patient had better pain control with the addition of ketorolac. She went for an MRI of the lumbar spine due to concerns for a haematoma. The MRI demonstrated some compression of the thecal sac at L4-5 but there was no haematoma. Therefore it was felt that the patient was able to be discharged from [facility] for transfer to [facility] for further therapy. Pt Condition on Discharge: Good Discharge Disposition: Rehab Inpatient Discharge Instructions DIET: Follow Instructions for: Diabetic Diet (1800 eric ADA) ACTIVITIES You can perform: Full Weight Bearing Activities to Avoid: Lifting/Bending, Strenuous Activity, Bathing, Shower ADDITIONAL Activity Instructio: Wear the TLSO brace when out of bed. Wear the cervical collar at all times. No lifting, bending, pushing, pulling or other strenuous activity. Additional Information Leave the dressing on over the surgical incisions for 1 week. After that you may take the outer dressing off but leave the steri-strips on and let them fall off on their own. No showering until the surgical incision is totally healed. Take the pain medication as prescribed. Avoid taking any medication that contains aspirin or NSAIDs (ibuprofen, naproxen , Motrin, Advil, Naprosyn) for at least a month. Follow up in the office in 2 weeks for a wound check. Peter Benito May 27, 2017 14:53
[2017-05-27 15:22] VITALS: BP 122/60; PULSE 89; RESP 18; TEMP 97.7; O2SAT 97
[2017-05-27 15:35] VITALS: O2SAT 97
[2017-05-27] MEDS ORDERED: HEPARIN SODIUM - SQ 10,000 UNITS/ML VIAL SQ SCH (22:00)
== END 2017-05-27 16:47 | DRG 460 ==
LOC: HSDI 05:49 → EDUNIT# 08:30 → N06A 17:14
PROVIDERS: ADMIT Neurological Surgery; ATTEND Neurological Surgery
PROC: 0ST20ZZ Resection of Lumbar Vertebral Disc, Open Approach (ICD-10-PCS; 2017-05-25)
PROC: 0SG00A0 Fusion of Lumbar Vertebral Joint with Interbody Fusion Device, Anterior Approach, Anterior Column, Open Approach (ICD-10-PCS; principal; 2017-05-25 08:37)
DX: M48.061 Spinal stenosis, lumbar region without neurogenic claudication (principal); G62.9 Polyneuropathy, unspecified; G25.81 Restless legs syndrome; M54.16 Radiculopathy, lumbar region; M43.16 Spondylolisthesis, lumbar region
CPT/HCPCS: 71010; 72100; 72158; 76000; 76937; 80048; 82805; 82948; 85025; 85610; 85730; 86850; 86900; 86901; 94150; A9579; C1713; C9290; J0131; J0690; J1170; J1580; J1885; J2175; J2270; L0484